=== PATIENT | male | born 1950 | race Caucasian/White ===

== ENCOUNTER → 2023-06-29 | Outpatient (REF) | payer OTHER, MEDICARE | LOC: M SMT PRO 10:05 | PROVIDERS: ATTEND Urology | DX: R97.20 Elevated prostate specific antigen [PSA] (principal); Z79.899 Other long term (current) drug therapy; Z85.828 Personal history of other malignant neoplasm of skin; Z87.891 Personal history of nicotine dependence; Z80.42 Family history of malignant neoplasm of prostate ==